=== PATIENT | female | born 1995 | race American Indian/Alaskan Native ===

== ENCOUNTER 2019-10-04 13:56 | Emergency (ER) | payer OTHER ==
--- NOTE | 2019-10-04 14:07 | Event Note ---
ED Screening Note Date of service: 10/04/19 Time: 14:05 ED Screening Note: 24 y o f presents with headache radiating down neck, admits some dizziness, no trauma elev BP, tachy no Hx This initial assessment/diagnostic orders/clinical plan/treatment(s) is/are subject to change based on patients health status, clinical progression and re- assessment by fellow clinical providers in the ED. Further treatment and workup at subsequent clinical providers discretion. Patient/guardian urged not to elope from the ED as their condition may be serious if not clinically assessed and managed. Initial orders include: iv benadryl, zofran acc eval
[2019-10-04] MEDS ORDERED: diphenhydrAMINE 25 MG CAP PO ONE (14:14)
[2019-10-04] MEDS ORDERED: BUTALB/ACETAMINOPHEN/CAFFEINE TAB PO ONE (14:14)
[2019-10-04] MEDS ORDERED: ONDANSETRON 4 MG ODT TAB PO ONE (14:14)
[2019-10-04] MEDS ORDERED: dexAMETHasone 4 MG/ML VIAL IM ONE (14:14)
--- NOTE | 2019-10-04 14:15 | Emergency Department Report ---
ED Headache HPI - General Chief Complaint: Headache Stated Complaint: MIGRAINE 2 DAYS Time Seen by Provider: 10/04/19 14:14 Source: patient Exam Limitations: no limitations - History of Present Illness Initial Comments: Patient is a 24-year-old female who comes to the ER with a migraine headache for 2 days. She states the character of the pain is just like her usual migraines but it just usually does not last this long. She has taken no medications at home to make the pain go away. Patient denies any trauma or head injury. She denies any fevers chills nausea vomiting or diarrhea. Patient denies chest pain or shortness of breath. Patient is ambulatory and playing on her phone as provider entered her room. She is here with her mother and young child. Patient is on control. She also takes blood pressure medications. Blood pressure slightly elevated in the ER but most likely due to her pain. Patient has no focal deficit on exam Timing/Duration: other Quality: moderate Modifying Factors: worse with: cold therapy, exposure to light, immobilization, medication, movement, rest, other Associated Symptoms: denies symptoms Allergies/Adverse Reactions: Allergies methimazole Allergy (Uncoded 10/04/19 14:01) Hives Home Medications: Ambulatory Orders Butalb/Acetaminophen/Caffeine [Fioricet 50-300-40 mg CAP] 1 cap PO Q8HR PRN #10 cap 10/04/19 ED Review of Systems ROS: Stated complaint: MIGRAINE 2 DAYS Other details as noted in HPI Comment: All other systems reviewed and negative ED Past Medical Hx - Past Medical History Hx Hypertension: Yes Hx Headaches / Migraines: Yes - Surgical History Past Surgical History?: Yes Additional Surgical History: C SECTION - Family History Family history: no significant - Social History Smoking Status: Current Every Day Smoker Substance Use Type: None - Medications Home Medications: Home Medications Medication Instructions Recorded Confirmed Last Taken Type Butalb/Acetaminophen/Caffeine 1 cap PO Q8HR PRN #10 cap 10/04/19 Unknown Rx [Fioricet 50-300-40 mg CAP] ED Physical Exam - General Limitations: No Limitations General appearance: alert, in no apparent distress - Head Head exam: Present: atraumatic, normocephalic - Eye Eye exam: Present: normal appearance - ENT ENT exam: Present: mucous membranes moist - Neck Neck exam: Present: normal inspection - Respiratory Respiratory exam: Present: normal lung sounds bilaterally. Absent: respiratory distress - Cardiovascular Cardiovascular Exam: Present: regular rate, normal rhythm. Absent: systolic murmur, diastolic murmur, rubs, gallop - GI/Abdominal GI/Abdominal exam: Present: soft, normal bowel sounds - Extremities Exam Extremities exam: Present: normal inspection - Back Exam Back exam: Present: normal inspection - Neurological Exam Neurological exam: Present: alert, oriented X3 - Psychiatric Psychiatric exam: Present: normal affect, normal mood - Skin Skin exam: Present: warm, dry, intact, normal color. Absent: rash ED Course Vital Signs 10/04/19 10/04/19 10/04/19 14:01 14:17 14:27 Temperature 99.0 F Pulse Rate 114 H 112 H 112 H Respiratory 20 18 Rate Blood Pressure 156/108 151/107 Blood Pressure 151/107 [Left] O2 Sat by Pulse 98 Oximetry 10/04/19 15:06 Temperature Pulse Rate 92 H Respiratory 18 Rate Blood Pressure Blood Pressure 148/102 [Left] O2 Sat by Pulse Oximetry ED Medical Decision Making - Medical Decision Making Patient has no focal neuro deficit on exam. This is her usual migraine. It is just lasting longer than normal. Because she has not taken any medications at home for the pain. She is ambulatory, playing on her cell phone and in no acute distress on exam and on reexam. Patient was discharged home with her family and outpatient plan of care including follow-up. Vital Signs 10/04/19 10/04/19 10/04/19 14:01 14:17 14:27 Temperature 99.0 F Pulse Rate 114 H 112 H 112 H Respiratory 20 18 Rate Blood Pressure 156/108 151/107 Blood Pressure 151/107 [Left] O2 Sat by Pulse 98 Oximetry 10/04/19 15:06 Temperature Pulse Rate 92 H Respiratory 18 Rate Blood Pressure Blood Pressure 148/102 [Left] O2 Sat by Pulse Oximetry Critical care attestation.: If time is entered above; I have spent that time in minutes in the direct care of this critically ill patient, excluding procedure time. ED Disposition Clinical Impression: Migraine, History of hypertension Disposition: - TO HOME OR SELFCARE Is pt being admited?: No Does the pt Need Aspirin: No Condition: Stable Instructions: Migraine Headache (ED), Hypertensive Crisis (ED) Prescriptions: Butalb/Acetaminophen/Caffeine [Fioricet 50-300-40 mg CAP] 1 cap PO Q8HR PRN #10 cap PRN Reason: Pain, Mild (1-3) Referrals: HILL MERCADO MD [Staff Physician] - 3-5 Days Time of Disposition: 14:22
[2019-10-04] MEDS ORDERED: cloNIDine 0.1 MG TAB PO ONE (14:22)
[2019-10-04 15:07] VITALS: BP 148/102
== END 2019-10-04 15:07 | disposition home or self-care (01) ==
LOC: ED 13:56
DX: G43.909 Migraine, unspecified, not intractable, without status migrainosus (principal); I10 Essential (primary) hypertension; F17.200 Nicotine dependence, unspecified, uncomplicated
CPT/HCPCS: 96372; 99282; J1100; Q0162